=== PATIENT | male | born 1985 | race Caucasian/White ===

== ENCOUNTER 2016-10-07 18:34 | Emergency (ER) | payer SELFPAY ==
[~2016-10-07] VITALS: Ht 175.3 cm; Wt 84.9 kg
[~2016-10-07 18:34] MED LIST: NAPROSYN500 MG PO
[2016-10-07] MEDS ORDERED: AMOXICILLIN500 MG PO (21:15)
[2016-10-07] MEDS ORDERED: VALTREX1000 MG PO (21:15)
[2016-10-07 21:34] VITALS: BP 134/79
== END 2016-10-07 21:35 | disposition home or self-care (01) ==
LOC: EME 18:34 → EXP 18:34
DX: B08.5 Enteroviral vesicular pharyngitis (principal); R42 Dizziness and giddiness; R51 Headache; F17.200 Nicotine dependence, unspecified, uncomplicated
CPT/HCPCS: 87651 90; 99281; 99284

== ENCOUNTER 2017-06-20 10:26 | Emergency (ER) | payer SELFPAY ==
[~2017-06-20] VITALS: Ht 175.3 cm; Wt 84.0 kg
[~2017-06-20 10:26] MED LIST changes: +AMOXICILLIN500 MG PO; +VALTREX1000 MG PO
[2017-06-20] MEDS ORDERED: TESSALON PERLE100 MG PO (13:04)
[2017-06-20] MEDS ORDERED: VENTOLIN HFA18 GM IH (13:04)
[2017-06-20 13:23] VITALS: BP 155/67
== END 2017-06-20 13:20 | disposition home or self-care (01) ==
LOC: EME 10:26
DX: J06.9 Acute upper respiratory infection, unspecified (principal); B34.9 Viral infection, unspecified; F17.200 Nicotine dependence, unspecified, uncomplicated; Z71.6 Tobacco abuse counseling
CPT/HCPCS: 71020; 94640; 99281; 99283

== ENCOUNTER 2017-07-05 12:50 | Emergency (ER) | payer OTHER ==
[~2017-07-05] VITALS: Ht 175.3 cm; Wt 84.5 kg
[~2017-07-05 12:50] MED LIST changes: +TESSALON PERLE100 MG PO; +VENTOLIN HFA18 GM IH
[2017-07-05] MEDS ORDERED: MOTRIN800 MG PO (13:52)
[2017-07-05] MEDS ORDERED: FLEXERIL10 MG PO (13:52)
[2017-07-05] MEDS ORDERED: PREDNISONE20 MG PO (13:52)
[2017-07-05 14:12] VITALS: BP 129/105
== END 2017-07-05 14:13 | disposition home or self-care (01) ==
LOC: EME 12:50
DX: S46.911A Strain of unspecified muscle, fascia and tendon at shoulder and upper arm level, right arm, initial encounter (principal); M62.838 Other muscle spasm; V43.52XA Car driver injured in collision with other type car in traffic accident, initial encounter; Y92.410 Unspecified street and highway as the place of occurrence of the external cause; I10 Essential (primary) hypertension; Z88.0 Allergy status to penicillin
CPT/HCPCS: 99281; 99284; J7512